=== PATIENT | male | born 1960 | race Caucasian/White ===

== ENCOUNTER → 2018-01-09 | Outpatient (CLI) | payer OTHER | END | disposition home or self-care (01) | LOC: HKI 08:58 | DX: M25.551 Pain in right hip (principal); I10 Essential (primary) hypertension; Z96.642 Presence of left artificial hip joint | CPT/HCPCS: 72170 ==

== ENCOUNTER → 2018-04-07 | Outpatient (CLI) | payer OTHER | END | disposition home or self-care (01) | LOC: HKI 13:26 | DX: Z01.818 Encounter for other preprocedural examination (principal) | CPT/HCPCS: Z7500 ==

== ENCOUNTER 2018-04-08 05:27 | Inpatient (IN) | payer OTHER ==
[2018-04-08] MEDS: DEXAMETHASONE 4 MG/ML 1 ML INJ IV (06:11)
[2018-04-08] MEDS: ONDANSETRON 4 MG INJ IV ×5 (06:11→20:23)
[2018-04-08] MEDS: CELECOXIB 200 MG CAP PO (06:11)
[2018-04-08] MEDS: ACETAMINOPHEN 1000MG/100ML IV 100 ML IVPB (06:11)
[2018-04-08] MEDS: LANSOPRAZOLE 30 MG CAP PO (06:11)
[2018-04-08] MEDS: oxyCODONE (CR) 10 MG TAB [oxyCONTIN] PO (06:13)
[2018-04-08] MEDS: LACTATED RINGER'S 1,000 ML IV* (06:13)
[2018-04-08] MEDS ORDERED: POLYMYXIN/BACITRACIN 1L IRRIG (06:55)
[2018-04-08] MEDS ORDERED: POLYMYXIN B 500000 UNIT INJ (06:59)
[2018-04-08] MEDS ORDERED: CEFAZOLIN 2 GM/50 ML (PMX) 50 ML IVPB (07:00)
[2018-04-08] MEDS ORDERED: BUPIVACAINE 0.75%/DEXT (SPINAL) 2 ML INJ (07:23)
[2018-04-08] MEDS ORDERED: morphine SULFATE/PF (10 MG/10 ML) INJ (07:23)
[2018-04-08] MEDS ORDERED: KETOROLAC 15 MG INJ IV (07:30)
[2018-04-08] MEDS ORDERED: NALOXONE (0.4 MG/ML) INJ IV (07:30)
[2018-04-08] MEDS ORDERED: MAGNESIUM HYDROXIDE 30ML CUP PO (07:30)
[2018-04-08] MEDS ORDERED: oxyCODONE 5 MG TAB PO ×2 (07:30)
[2018-04-08] MEDS ORDERED: BETHANECHOL 25 MG TAB PO (07:30)
[2018-04-08] MEDS ORDERED: DIPHENHYDRAMINE 50 MG INJ IV (07:30)
[2018-04-08] MEDS ORDERED: NA PHOSPHATE/BIPHOS 133 ML ENEMA PR (07:30)
[2018-04-08] MEDS ORDERED: NACL 0.9% 3 ML SYG IV (07:30)
[2018-04-08] MEDS ORDERED: BISACODYL 10 MG SUPP PR (07:30)
[2018-04-08] MEDS ORDERED: SENNA/DOCUSATE NA (8.6MG/50MG) TAB PO (07:30)
[2018-04-08] MEDS ORDERED: ROCURONIUM 50 MG INJ (08:09)
[2018-04-08] MEDS ORDERED: LIDOCAINE 100 MG SYRINGE (08:09)
[2018-04-08] MEDS ORDERED: CEFAZOLIN 1 GM INJ (08:09)
[2018-04-08] MEDS ORDERED: PROPOFOL 20 ML (08:09)
[2018-04-08] MEDS ORDERED: SUCCINYLCHOLINE CHLORIDE 100 MG/5 ML SYG IV (08:09)
[2018-04-08] MEDS ORDERED: SUGAMMADEX SODIUM 200 MG/2 ML VIAL IV (08:09)
[2018-04-08] MEDS ORDERED: FENTAnyl 50 MCG/ML VIAL (08:16)
[2018-04-08] MEDS: TRANEXAMIC ACID 1,000 MG in NS 100 ML PRE-OP X1 IVPB (08:19)
[2018-04-08] MEDS: BACITRACIN 50000 UNITS INJ (08:26)
[2018-04-08] MEDS: POLYMYXIN B 500000 UNIT INJ IRR (08:26)
[2018-04-08] MEDS: HIP PAIN COCKTAIL (CEFUROXIME) INJ (08:27)
[2018-04-08] MEDS: TRANEXAMIC ACID 1,000 MG in NS 100 ML INTRA-OP X1 IVPB (08:28)
[2018-04-08] MEDS ORDERED: FENTAnyl 50 MCG/ML VIAL IV ×2 (08:30)
[2018-04-08] MEDS ORDERED: METOCLOPRAMIDE 10 MG INJ IV (08:30)
[2018-04-08] MEDS ORDERED: hydrALAzine 20 MG INJ IV (08:30)
[2018-04-08] MEDS ORDERED: ALBUTEROL 0.083% (NEB) 2.5 MG/3 ML AMP HHN (08:30)
[2018-04-08] MEDS ORDERED: HYDROmorphONE 1 MG/5 ML IV SYRINGE IV (08:30)
[2018-04-08] MEDS ORDERED: LABETALOL HCL 20MG INJ IV (08:30)
[2018-04-08] MEDS ORDERED: LABETALOL HCL 20MG INJ (08:34)
[2018-04-08] MEDS: FENTAnyl 50 MCG/ML VIAL IV ×2 (10:37→10:45)
[2018-04-08] MEDS: HYDROmorphONE 1 MG/5 ML IV SYRINGE IV ×2 (10:37→10:45)
[2018-04-08] MEDS: DIPHENHYDRAMINE 50 MG INJ IV (10:38)
[2018-04-08] MEDS: MEPERIDINE 25 MG INJ IV (10:38)
[2018-04-08] MEDS: ASPIRIN (EC) 325 MG TAB PO ×2 (10:39→20:24)
[2018-04-08] MEDS: DOCUSATE SODIUM 100 MG CAP PO (10:39)
[2018-04-08] MEDS: CEFAZOLIN 1 GM/50 ML (PMX) 50 ML IVPB ×3 (10:46→23:33)
[2018-04-08] MEDS: GABAPENTIN 100 MG CAP PO ×2 (11:59→20:24)
[2018-04-08] MEDS: SOD CHLORIDE 0.9% 1,000 ML IV ×3 (13:21→23:31)
[2018-04-08] MEDS: oxyCODONE 5 MG TAB PO (23:30)
[2018-04-09] MEDS: ONDANSETRON 4 MG INJ IV (01:30)
[2018-04-09] MEDS ORDERED: NITROGLYCERIN (SL) 0.4 MG TAB (04:52)
[2018-04-09] MEDS: NITROGLYCERIN (SL) 0.4 MG TAB SL (04:54)
[2018-04-09] MEDS: morphine 2 MG INJ IV ×3 (05:15→18:15)
[2018-04-09 05:20] LABS: ADD MAN DIFF? NO
[2018-04-09 05:26] LABS: BASOPHILS % 0.1 % (0.0-2.0); EOSINOPHILS % 0.4 % (0.0-7.0); HEMATOCRIT 30.4 % (42.0-52.0); LYMPHOCYTES # 2.2 10^3/ul (0.8-2.9); LYMPHOCYTES % 23.4 % (15.0-51.0); MEAN CORPUSCULAR HEMOGLOBIN 31.9 pg (29.0-33.0); MEAN CORPUSCULAR HGB CONC 32.9 g/dl (32.0-37.0); MEAN CORPUSCULAR VOLUME 97.1 fl (82.0-101.0); MEAN PLATELET VOLUME 9.5 fl (7.4-10.4); MONOCYTE # 0.8 10^3/ul (0.3-0.9); MONOCYTES % 8.2 % (0.0-11.0); NEUTROPHIL # 6.4 10^3/ul (1.6-7.5); NEUTROPHILS % 67.6 % (39.0-77.0); PLATELET COUNT 202 10^3/UL (140-415); RED BLOOD COUNT 3.13 10^6/ul (4.70-6.10); RED CELL DISTRIBUTION WIDTH 12.3 % (11.5-14.5)
[2018-04-09 05:26] LABS: WHITE BLOOD COUNT 9.4 10^3/ul (4.8-10.8)
[2018-04-09 05:30] LABS: ANION GAP 7 (8-16); BLOOD UREA NITROGEN 16 mg/dl (7-20); CALCIUM 8.3 mg/dl (8.4-10.2); CARBON DIOXIDE 32 mmol/L (21-31); CHLORIDE 106 mmol/L (97-110); CREATININE 0.67 mg/dl (0.61-1.24); GLUCOSE 111 mg/dl (70-220); POTASSIUM 3.9 mmol/L (3.5-5.1); SODIUM 141 mmol/L (135-144)
[2018-04-09 05:49] LABS: CREATINE KINASE 484 IU/L (23-200)
[2018-04-09 06:03] LABS: CK INDEX 1.1; TROPONIN-I < 0.010 ng/ml (0.000-0.120)
[2018-04-09] MEDS: PANTOPRAZOLE (EC) 40 MG TAB PO (06:05)
[2018-04-09 08:30] LABS: ADD UMIC YES; UR ASCORBIC ACID 20 mg/dL (NEGATIVE); UR BACTERIA FEW /HPF (NONE SEEN); UR BILIRUBIN (Dip) NEGATIVE (NEGATIVE); UR BLOOD (Dip) NEGATIVE (NEGATIVE); UR CLARITY TURBID (CLEAR); UR COLOR YELLOW (YELLOW); UR GLUCOSE (Dip) NEGATIVE (NEGATIVE); UR KETONES (Dip) NEGATIVE (NEGATIVE); UR LEUKOCYTE ESTERASE (Dip) NEGATIVE Leu/ul (NEGATIVE); UR MUCUS MODERATE /HPF (NONE SEEN); UR NITRITE (Dip) NEGATIVE (NEGATIVE); UR RBC 1 /HPF (0-5); UR SPECIFIC GRAVITY (Dip) 1.029 (1.003-1.030); UR TOTAL PROTEIN (Dip) 1+ mg/dl (NEGATIVE); UR UROBILINOGEN (Dip) NEGATIVE (NEGATIVE); UR WBC 17 /HPF (0-5)
[2018-04-09] MEDS: GABAPENTIN 100 MG CAP PO ×2 (08:47→21:25)
[2018-04-09] MEDS: CELECOXIB 200 MG CAP PO ×2 (08:47→21:25)
[2018-04-09] MEDS: DOCUSATE SODIUM 100 MG CAP PO ×2 (08:48→21:25)
[2018-04-09] MEDS: FERROUS FUMARATE (SR) TAB PO ×2 (08:48→21:25)
[2018-04-09] MEDS: ASPIRIN (EC) 325 MG TAB PO ×2 (08:56→21:25)
[2018-04-09 10:56] LABS: CREATINE KINASE 517 IU/L (23-200)
[2018-04-09 11:06] LABS: CK INDEX 0.8; TROPONIN-I < 0.010 ng/ml (0.000-0.120)
[2018-04-09] MEDS ORDERED: ALBUTEROL/IPRATROPIUM (NEB) 3 ML AMP HHN (15:00)
[2018-04-09] MEDS: MOMETASONE 0.24 GM INHALER INH ×2 (15:30→21:27)
[2018-04-09] MEDS: FAMOTIDINE 20 MG TAB PO ×2 (15:30→23:00)
[2018-04-09] MEDS: ALBUTEROL/IPRATROPIUM (NEB) 3 ML AMP HHN ×2 (15:36→21:58)
[2018-04-09] MEDS ORDERED: HYDROCODONE/APAP (5/325) TAB PO (20:15)
[2018-04-09] MEDS: traMADol 50 MG TAB PO (21:25)
[2018-04-10] MEDS ORDERED: VITAMIN A & D 5 GM OINT PACKET TOP (01:42)
[2018-04-10 05:35] LABS: ADD MAN DIFF? NO
[2018-04-10 05:39] LABS: WHITE BLOOD COUNT 8.4 10^3/ul (4.8-10.8)
[2018-04-10 05:39] LABS: BASOPHILS % 0.2 % (0.0-2.0); EOSINOPHILS % 0.5 % (0.0-7.0); HEMATOCRIT 29.8 % (42.0-52.0); HEMOGLOBIN 9.8 g/dl (14.0-18.0); LYMPHOCYTES # 2.3 10^3/ul (0.8-2.9); MEAN CORPUSCULAR HEMOGLOBIN 31.6 pg (29.0-33.0); MEAN CORPUSCULAR HGB CONC 32.9 g/dl (32.0-37.0); MEAN CORPUSCULAR VOLUME 96.1 fl (82.0-101.0); MEAN PLATELET VOLUME 9.3 fl (7.4-10.4); MONOCYTE # 0.8 10^3/ul (0.3-0.9); MONOCYTES % 9.4 % (0.0-11.0); NEUTROPHIL # 5.3 10^3/ul (1.6-7.5); NEUTROPHILS % 62.5 % (39.0-77.0); PLATELET COUNT 208 10^3/UL (140-415)
[2018-04-10] MEDS: traMADol 50 MG TAB PO ×2 (05:52→11:23)
[2018-04-10] MEDS: PANTOPRAZOLE (EC) 40 MG TAB PO (05:52)
[2018-04-10 06:24] LABS: ANION GAP 8 (8-16); BLOOD UREA NITROGEN 12 mg/dl (7-20); CALCIUM 8.3 mg/dl (8.4-10.2); CARBON DIOXIDE 29 mmol/L (21-31); CHLORIDE 105 mmol/L (97-110); CREATININE 0.74 mg/dl (0.61-1.24); GLUCOSE 103 mg/dl (70-220); POTASSIUM 4.4 mmol/L (3.5-5.1); SODIUM 138 mmol/L (135-144)
[2018-04-10] MEDS: ALBUTEROL/IPRATROPIUM (NEB) 3 ML AMP HHN (08:28)
[2018-04-10] MEDS: CELECOXIB 200 MG CAP PO (08:38)
[2018-04-10] MEDS: DOCUSATE SODIUM 100 MG CAP PO (08:38)
[2018-04-10] MEDS: FAMOTIDINE 20 MG TAB PO (08:38)
[2018-04-10] MEDS: GABAPENTIN 100 MG CAP PO (08:39)
[2018-04-10] MEDS: FERROUS FUMARATE (SR) TAB PO (08:39)
[2018-04-10] MEDS: ASPIRIN (EC) 325 MG TAB PO (08:39)
[2018-04-10] MEDS: MOMETASONE 0.24 GM INHALER INH (08:40)
[2018-04-10 13:30] LABS: ADD UMIC NO; UR ASCORBIC ACID NEGATIVE (NEGATIVE); UR BILIRUBIN (Dip) NEGATIVE (NEGATIVE); UR BLOOD (Dip) NEGATIVE (NEGATIVE); UR CLARITY CLEAR (CLEAR); UR COLOR YELLOW (YELLOW); UR GLUCOSE (Dip) NEGATIVE (NEGATIVE); UR KETONES (Dip) NEGATIVE (NEGATIVE); UR LEUKOCYTE ESTERASE (Dip) NEGATIVE Leu/ul (NEGATIVE); UR NITRITE (Dip) NEGATIVE (NEGATIVE); UR SPECIFIC GRAVITY (Dip) 1.013 (1.003-1.030); UR TOTAL PROTEIN (Dip) NEGATIVE (NEGATIVE); UR UROBILINOGEN (Dip) 2+ mg/dL (NEGATIVE)
== END 2018-04-10 17:15 | disposition home health service (06) | DRG 470 ==
LOC: REC 05:27 → MS1 11:12
PROC: 0SR904A Replacement of Right Hip Joint with Ceramic on Polyethylene Synthetic Substitute, Uncemented, Open Approach (ICD-10-PCS; principal; 2018-04-08 07:29)
PROC: 8E0YXBZ Computer Assisted Procedure of Lower Extremity (ICD-10-PCS; 2018-04-08 07:29)
DX: M16.11 Unilateral primary osteoarthritis, right hip (principal); I10 Essential (primary) hypertension; R06.02 Shortness of breath; I95.9 Hypotension, unspecified; Z96.642 Presence of left artificial hip joint
CPT/HCPCS: 72170; 73500; 73530; 80048; 81001; 81003; 82550; 82553; 82962; 84484; 85025; 86850; 86900; 86901; 86920; 87086; 88304; 88311; 93005; 94640; 94664; 97110; 97116; 97161; 97165; 97530; 97535

== ENCOUNTER → 2018-04-22 | Outpatient (CLI) | payer OTHER | END | disposition home or self-care (01) | LOC: HKI 10:54 | DX: Z09 Encounter for follow-up examination after completed treatment for conditions other than malignant neoplasm (principal); Z96.641 Presence of right artificial hip joint | CPT/HCPCS: 73502 ==

== ENCOUNTER → 2018-05-12 | Outpatient (CLI) | payer OTHER | END | disposition home or self-care (01) | LOC: HKI 13:45 | DX: Z47.1 Aftercare following joint replacement surgery (principal); Z96.641 Presence of right artificial hip joint | CPT/HCPCS: 73502 ==